=== PATIENT | female | born 1955 | race Caucasian/White ===

== ENCOUNTER → 2018-05-28 | Outpatient (CLI) | payer BC ==
--- NOTE | 2018-05-28 14:09 | US ---
EXAMINATION TYPE: US thyroid st tissue head/neck DATE OF EXAM: 05/28/2018 COMPARISON: US 2012 CLINICAL HISTORY: E03.9 Hypothyroidism. GLAND SIZE: Right Lobe: 4.2 x 1.2 x 1.0 cm Overall Parenchyma: homogenous Left Lobe: 4.8 x 1.1 x 0.9 cm Overall Parenchyma: homogeneous Isthmus Thickness: 0.1 cm NODULES RIGHT: # of nodules measured on right: 0 LEFT: # of nodules measured on left: 1 1. 1.1 x 0.7 x 0.9cm hypoechoic solid nodule at the mid pole with well-defined margins. This nodule is wider than tall and shows intranodular vascularity. ISTHMUS: # of nodules measured in the isthmus: 0 Bilateral neck scanned, no evidence of lymphadenopathy. IMPRESSION: 1. Left lobe thyroid nodule.
== END | disposition home or self-care (01) ==
LOC: RADUSWWP 13:32
PROVIDERS: ATTEND Family Medicine
DX: E04.1 Nontoxic single thyroid nodule (principal); E03.9 Hypothyroidism, unspecified
CPT/HCPCS: 76536

== ENCOUNTER → 2019-04-16 | Outpatient (CLI) | payer BC ==
--- NOTE | 2019-04-16 17:45 | BD ---
EXAMINATION TYPE: Axial Bone Density DATE OF EXAM: 04/16/2019 COMPARISON: NONE CLINICAL HISTORY: Height: 66 Weight: 141.5 FRAX RISK QUESTIONS: Alcohol (3 or more units per day): no Family History (Parent hip fracture): no Glucocorticoids (More than 3mos): no (Ex: prednisone, prednisolone, methylprednisolone, dexamethasone, and hydrocortisone). History of Fracture in Adulthood: yes Secondary Osteoporosis: 1. Type 1 Diabetes: no 2. Hyperthyroidism: no 3. Menopause before 45: yes 4. Malnutrition: no 5. Chronic liver disease: no Rheumatoid Arthritis: no Current Tobacco Use: no RISK FACTORS HISTORY OF: Family History of Osteoporosis: no Active: yes Diet low in dairy products/other sources of calcium: no Postmenopausal woman: hysterectomy age 32 Take estrogen and/or progesterone medications: yes How lon years Lost more than 2 inches in height since high school: no MEDICATIONS: Thyroid Medications: synthroid, vitamins Additional History: EXAM MEASUREMENTS: Bone mineral densitometry was performed using the [employer] System. Bone mineral density as measured about the Lumbar spine is: ----- L1-L4(G/cm2): 1.047 T Score Values are as follows: ----- L2: -1.4 ----- L3: -1.3 ----- L4: -0.4 ----- L1-L4: -1.1 Bone mineral density has: increased 1.1 % since study of: 11.01.2015 Bone mineral density about the R hip (g/cm2): 0.816 Bone mineral density about the L hip (g/cm2): 0.836 T Score values are as follows: -----R Neck: -1.6 -----L Neck: -1.5 -----R Total: -0.9 -----L Total: -1.1 Bone mineral density has: 0 % since study of: 11.01.2015 IMPRESSION: Osteopenia (T Score between -2.5 and -1). There is slightly increased risk of fracture and the patient may be considered for treatment. Re-Screen 2-5 years. NOTE: T-SCORE=SD OF THE YOUNG ADULT MEAN.
--- NOTE | 2019-04-20 10:54 | MM ---
Reason for exam: screening (asymptomatic). Last mammogram was performed 2 years and 10 months ago. History: Patient is postmenopausal and has history of endometrial cancer at age 32. Family history of breast cancer in mother at age 65. Benign excisional biopsy of the right breast, October 20, 1998. Benign core biopsy of the right breast, 1995. Taking estrogen for 9 years beginning at age 50. Taking progesterone for 13 years 6 months beginning at age 48. MG Screening Mammo w CAD Bilateral CC and MLO view(s) were taken. Prior study comparison: June 18, 2016, bilateral MG screening mammo w CAD. June 01, 2014, bilateral MG screening mammo w CAD. The breast tissue is extremely dense which could obscure a lesion on mammography. No significant new finding when compared with prior studies. ASSESSMENT: Benign, BI-RAD 2 RECOMMENDATION: Routine screening mammogram of both breasts in 1 year.
== END | disposition home or self-care (01) ==
LOC: RADMAMWWP 13:55
PROVIDERS: ATTEND Family Medicine
DX: Z12.31 Encounter for screening mammogram for malignant neoplasm of breast (principal); M85.80 Other specified disorders of bone density and structure, unspecified site
CPT/HCPCS: 77067; 77080

== ENCOUNTER → 2021-06-05 | Outpatient (CLI) | payer MEDICARE ==
--- NOTE | 2021-06-05 11:58 | BD ---
EXAMINATION TYPE: Axial Bone Density DATE OF EXAM: 06/05/2021 COMPARISON: 04/16/2019 CLINICAL HISTORY: Postmenopausal female. Height: 66 IN Weight: 148 LBS FRAX RISK QUESTIONS: History of Fracture in Adulthood: LT ANKLE AGE 44 Secondary Osteoporosis: 3. Menopause before 45: PARTIAL HYST AGE 32 5. Chronic liver disease: FATTY LIVER RISK FACTORS HISTORY OF: Active: YES Postmenopausal woman: PARTIAL HYST AGE 32 Take estrogen and/or progesterone medications: YES VAGINAL CREAM How lon YEAR MEDICATIONS: Thyroid Medications: YES Which medication: Levothyroxine How Lon+ YEARS Additional Medications: VIT D, LEVOTHYROXINE, MULTI VIT, MAGNESIUM, EXAM MEASUREMENTS: Bone mineral densitometry was performed using the [employer] System. Bone mineral density as measured about the Lumbar spine is: ----- L1-L4(G/cm2): 0.952 T Score Values are as follows: ----- L2: -2.2 ----- L3: -1.8 ----- L4: -2.0 ----- L1-L4: -1.9 Bone mineral density has: Decreased -11.0% since study of: 04/16/2019 Bone mineral density about the R hip (g/cm2): 0.807 Bone mineral density about the L hip (g/cm2): 0.789 T Score values are as follows: -----R Neck: -1.7 -----L Neck: -1.8 -----R Total: -1.1 -----L Total: -1.3 Bone mineral density has: Decreased -2.2% since study of: 04/16/2019 IMPRESSION: Osteopenia (T Score between -2.5 and -1) remains present. There is slightly increased risk of fracture and the patient may be considered for treatment. Re-Screen 2-5 years. NOTE: T-SCORE=SD OF THE YOUNG ADULT MEAN.
--- NOTE | 2021-06-06 12:01 | MM ---
Reason for exam: screening (asymptomatic). Last mammogram was performed 2 years and 2 months ago. History: Patient is postmenopausal, has history of endometrial cancer at age 32, and has history of other cancer at age 32. Family history of breast cancer in mother at age 65. Benign excisional biopsy of the right breast, October 20, 1998. Benign core biopsy of the right breast, 1995. Took estrogen for 9 years beginning at age 50. Took progesterone for 13 years 6 months beginning at age 48. Physical Findings: A clinical breast exam by your physician is recommended on an annual basis and results should be correlated with mammographic findings. MG 3D Screening Mammo W/Cad Bilateral CC and MLO view(s) were taken. Prior study comparison: June 18, 2016, bilateral MG screening mammo w CAD. The breast tissue is heterogeneously dense. This may lower the sensitivity of mammography. No significant changes when compared with prior studies. ASSESSMENT: Benign, BI-RAD 2 RECOMMENDATION: Routine screening mammogram of both breasts in 1 year.
== END | disposition home or self-care (01) ==
LOC: RADMAMWWP 10:20
PROVIDERS: ATTEND Family Medicine
DX: Z12.31 Encounter for screening mammogram for malignant neoplasm of breast (principal); Z78.0 Asymptomatic menopausal state
CPT/HCPCS: 77063; 77067; 77080

== ENCOUNTER → 2022-09-19 | Outpatient (CLI) | payer MEDICARE ==
--- NOTE | 2022-09-20 13:32 | MM ---
Reason for Exam: Screening (asymptomatic). Last mammogram was performed 1 year(s) and 3 month(s) ago. Patient History: Menarche at age 14. First Full-Term at age 18. Hysterectomy at age 32. Postmenopausal. Patient has history of breast feeding. Endometrial cancer, age 32. Estrogen, starting at age 50 for 9 years. 1995, Benign Core Biopsy on the right side. 10/20/1998, Benign Excisional Biopsy on the right side. Mother had breast cancer, age 65. Risk Values: Tracy 5 year model risk: 4.3%. NCI Lifetime model risk: 14.1%. Prior Study Comparison: 06/18/2016 Bilateral Screening Mammogram, [facility]. 04/16/2019 Bilateral Screening Mammogram, [facility]. 06/05/2021 Bilateral Screening Mammogram, [facility]. Tissue Density: The breast tissue is heterogeneously dense. This may lower the sensitivity of mammography. Findings: Analyzed By CAD. There are regional tiny rounded and dystrophic calcifications in the upper outer aspect of the left breast redemonstrated. There is no suspicious group of microcalcifications or new suspicious mass in either breast. Overall Assessment: Benign, BI-RAD 2 Management: Screening Mammogram of both breasts in 1 year. A clinical breast exam by your physician is recommended on an annual basis and results should be correlated with mammographic findings. Electronically signed and approved by: Simon Olea M.D.
== END | disposition home or self-care (01) ==
LOC: RADMAMWWP 09:56
PROVIDERS: ATTEND Family Medicine
DX: Z12.31 Encounter for screening mammogram for malignant neoplasm of breast (principal); Z78.0 Asymptomatic menopausal state; Z80.3 Family history of malignant neoplasm of breast; Z98.890 Other specified postprocedural states
CPT/HCPCS: 77063; 77067

== ENCOUNTER → 2024-01-01 | Outpatient (CLI) | payer MEDICARE ==
--- NOTE | 2024-01-01 11:29 | CT ---
EXAMINATION TYPE: CT sinus wo con CT DLP: 406.8 mGycm, Automated exposure control for dose reduction was used. DATE OF EXAM: 01/01/2024 11:14 AM COMPARISON: 05/22/2010.. 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 Additional coronal and sagittal reformatted images were submitted for evaluation. Contrast used: none Oral contrast used: none FINDINGS: Frontal sinuses: Normally developed and aerated. Frontal Recess: Clear Maxillary Sinuses: Normally developed. There is mucosal thickening most pronounced along the inferior aspect of the left maxillary sinus with chronic prostatitis. Maxillary Infundibula([facility]): Clear, left Claude cell identified with narrowing of the infundibula. Ethmoid sinuses: Normally developed and aerated. Ethmoidal notch: Protected and abutting the lateral lamina. Sphenoid sinuses: Normally developed and aerated. There is sellar sphenoid sinus pneumatization witho ut evidence of dehiscence. No dehiscence of carotid canal. No evidence of optic nerve dehiscence wit hin the sphenoid sinus. No evidence of Onodi cells. Sphenoethmoidal recesses: Clear. Nasal septum: Mildly deviated right with spurring between the right inferior and middle turbinate. Nasal Turbinates: Mild mucosal thickening of the turbinates. Mastoid air cells & middle ears: The air cells are clear. The middle ears are grossly unremarkable. Modified Soft tissues & Brain: Partially seen without gross abnormality. Globes are intact. Other: Cribriform plate demonstrates symmetric Keros classification type 2 cribriform plate. No evidence of bony dehiscence of skull base. Lamina papyracea is intact without evidence of remote orbital fracture or orbital prolapse into the e thmoid sinus. IMPRESSION: Chronic sinusitis changes of the left maxilla most pronounced in the inferior aspect with chronic bon y changes.
== END | disposition home or self-care (01) ==
LOC: RADCTMAIN 10:47
PROVIDERS: ATTEND Otolaryngology
DX: J32.0 Chronic maxillary sinusitis (principal)
CPT/HCPCS: 70486

== ENCOUNTER → 2024-06-03 | Outpatient (CLI) | payer MEDICARE ==
--- NOTE | 2024-06-03 10:21 | BD ---
EXAMINATION TYPE: Axial Bone Density DATE OF EXAM: 06/03/2024 CLINICAL HISTORY: 69 years old Female. ICD-10 CODE: M85.88 DISORDER OF BONE Height: 65.2 Weight: 147 FRAX RISK QUESTIONS: History of Fracture in Adulthood: yes Secondary Osteoporosis: yes 3. Menopause before 45: yes 5. Chronic liver disease: yes, fatty liver disease RISK FACTORS HISTORY OF: lt ankle fx at 44 yrs old, arthritis, MEDICATIONS: hormones in the past for few yrs, vit d, multivitamin, magnesium, cholesterol meds, but has stopped t hem now Thyroid Medications: yes, synthroid product, for about 13 yrs EXAM MEASUREMENTS: Bone mineral densitometry was performed using the [employer] System. Bone mineral density as measured about the Lumbar spine is: ----- L1-L4(G/cm2): 0.930 T Score Values are as follows: ----- L1: -2.3 ----- L2: -2.9 ----- L3: -2.0 ----- L4: -1.4 ----- L1-L4: -2.1 Z Score Values are as follows: ----- L1: -0.7 ----- L2: -1.3 ----- L3: -0.4 ----- L4: 0.2 ----- L1-L4: -0.5 Bone mineral density has: Decreased -2.3% since study of: 06.05.2021 Bone mineral density about the R hip (g/cm2): 0.874 Bone mineral density about the L hip (g/cm2): 0.838 T Score values are as follows: -----R Neck: -1.2 -----L Neck: -1.4 -----R Total: -1.1 -----L Total: -1.3 Z Score values are as follows: -----R Neck: 0.3 -----L Neck: 0.2 -----R Total: 0.3 -----L Total: 0.0 Bone mineral density has: Decreased -0.2% since study of: 06.05.2021 FRAX%s: The graph provided illustrates a 15.4% chance for a major osteoporotic fx and a 2.0% chance f or the hips probability for fx in 10 years time. IMPRESSION: Osteopenia (T Score between -2.5 and -1). There is slightly increased risk of fracture and the patient may be considered for treatment. Re-Screen 2-5 years. NOTE: T-SCORE=SD OF THE YOUNG ADULT MEAN. [facility], , 06/03/2024 10:18 AM
--- NOTE | 2024-06-04 18:54 | MM ---
Reason for Exam: Screening (asymptomatic). Last mammogram was performed 1 year(s) and 9 month(s) ago. Patient History: Menarche at age 14. First Full-Term at age 18. Hysterectomy at age 32. Postmenopausal. Patient has history of breast feeding. Endometrial cancer, age 32. Estrogen, starting at age 50 for 9 years. 1995, Benign Core Biopsy on the right side. 10/20/1998, Benign Excisional Biopsy on the right side. Mother had breast cancer, age 65. Risk Values: Tracy 5 year model risk: 4.4%. NCI Lifetime model risk: 13.0%. Prior Study Comparison: 04/16/2019 Bilateral Screening Mammogram, [facility]. 06/05/2021 Bilateral Screening Mammogram, [facility]. 09/19/2022 Bilateral MG 3D screening mammo w/cad, [facility]. Tissue Density: The breasts are heterogeneously dense, which may obscure small masses. Findings: Analyzed By CAD. Regional calcifications left upper quadrant are unchanged. There is no suspicious group of microcalcifications or new suspicious mass in either breast. Overall Assessment: Benign, BI-RAD 2 Management: Screening Mammogram of both breasts in 1 year. See note below in regards to the patient's increased 5 year Tracy score. Patient should continue monthly self-breast exams. A clinical breast exam by your physician is recommended on an annual basis. This exam should not preclude additional follow-up of suspicious palpable abnormalities. Note on Tracy scores and lifetime risk: 1. A Tracy score greater than 3% is considered moderate risk. If this is the case, consider specialist referral to assess eligibility for a risk reducing agent. 2. If overall lifetime risk for the development of breast cancer is 20% or higher, the patient may qualify for future screening with alternating mammogram and breast MRI. [facility], , 06/04/2024 6:50 PM. Electronically signed and approved by: Geovani Simon M.D. Radiologist
== END | disposition home or self-care (01) ==
LOC: RADMAMWWP 08:47
PROVIDERS: ATTEND Family Medicine
DX: M85.88 Other specified disorders of bone density and structure, other site
CPT/HCPCS: 77063; 77067; 77080